=== PATIENT | female | born 1980 | race Caucasian/White ===

== ENCOUNTER 2019-03-03 08:39 | Outpatient (CLI) | payer OTHER ==
[2019-03-03] MEDS ORDERED: LEVO75TA5 PO (09:06)
[2019-03-03] MEDS ORDERED: one a day vitamin PO (09:37)
== END 2019-03-03 23:59 | disposition home or self-care (01) ==
LOC: STAR 08:39
PROVIDERS: ATTEND Surgery Vascular Surgery
DX: Z02.9 Encounter for administrative examinations, unspecified (principal)

== ENCOUNTER 2019-03-10 08:40 | Day surgery (SDC) | payer OTHER ==
[~2019-03-10] VITALS: Ht 154.9 cm; Wt 80.7 kg
[~2019-03-10 08:40] MED LIST: LEVO75TA5 PO; one a day vitamin PO
[2019-03-10] MEDS ORDERED: BUPIVACAINE/PF 0.5% ONE (09:04)
[2019-03-10 09:08] VITALS: BP 121/86
[2019-03-10] MEDS ORDERED: LACTATED RINGERS 1,000 ML IV SCH (09:10)
[2019-03-10 09:30] LABS: HCG UR SG 1.029 (1.003-1.030)
[2019-03-10] MEDS ORDERED: ACETAMINOPHEN 500 MG TABLET PO ONE (09:30)
[2019-03-10] MEDS ORDERED: MIDAZOLAM 1 MG/ML, 2ML ONE (09:56)
[2019-03-10] MEDS ORDERED: FENTANYL PF 100 MCG/2ML ONE ×2 (09:56→11:35)
[2019-03-10] MEDS ORDERED: CEFAZOLIN 1,000 MG ONE ×3 (09:59→10:57)
[2019-03-10] MEDS ORDERED: SODIUM CHLORIDE 0.9% PF 10ML ONE ×2 (09:59→10:58)
[2019-03-10] MEDS ORDERED: PROPOFOL 10 MG/ML, 20ML ONE ×2 (09:59→10:57)
[2019-03-10] MEDS ORDERED: LABETALOL 5MG/ML, 20ML IV PRN (10:00)
[2019-03-10] MEDS ORDERED: ONDANSETRON 2MG/ML, 2ML IV PRN (10:00)
[2019-03-10] MEDS ORDERED: MEPERIDINE/PF 25MG/ML,1ML IVPush PRN (10:00)
[2019-03-10] MEDS ORDERED: PROMETHAZINE 25 MG/ML, 1ML IV PRN (10:00)
[2019-03-10] MEDS ORDERED: FENTANYL PF 100 MCG/2ML IV PRN (10:00)
[2019-03-10] MEDS ORDERED: hydrALAzine 20 MG/ML, 1ML IV PRN (10:00)
[2019-03-10] MEDS ORDERED: HYDROmorphone 2 MG/ML, 1ML IVPush PRN (10:00)
[2019-03-10] MEDS ORDERED: OXYcodone 5 MG/5 ML ORAL.SOL UDC PO PRN (10:00)
[2019-03-10] MEDS ORDERED: EPHEDRINE 50 MG/ML, 1ML IVPush PRN (10:00)
[2019-03-10] MEDS ORDERED: ONDANSETRON 2MG/ML, 2ML ONE (10:57)
[2019-03-10] MEDS ORDERED: SCOPOLAMINE PATCH, 1.5MG PATCH.TD72 TD ONE ×2 (10:57→11:00)
[2019-03-10] MEDS ORDERED: DEXAMETHASONE 4 MG/ML, 1ML ONE ×2 (10:57)
[2019-03-10] MEDS ORDERED: SUCCINYLCHOLINE 20 MG/ML, 10ML ONE (11:01)
[2019-03-10] MEDS ORDERED: KETOROLAC 30 MG/1 ML ONE (11:01)
[2019-03-10] MEDS ORDERED: EPINEPHRINE 1 MG/ML, 1ML INFIL ONE (11:16)
[2019-03-10] MEDS ORDERED: OXYcodone 5 MG/5 ML ORAL.SOL UDC ONE (11:53)
== END 2019-03-10 13:50 | disposition home or self-care (01) ==
LOC: OUT 08:40
PROVIDERS: ATTEND Surgery Vascular Surgery
DX: K40.90 Unilateral inguinal hernia, without obstruction or gangrene, not specified as recurrent (principal); E03.9 Hypothyroidism, unspecified; Z79.890 Hormone replacement therapy; Z79.899 Other long term (current) drug therapy; Z88.2 Allergy status to sulfonamides; Z98.890 Other specified postprocedural states; Z82.49 Family history of ischemic heart disease and other diseases of the circulatory system; Z80.3 Family history of malignant neoplasm of breast
CPT/HCPCS: 49505; 81025; C1781; J0171; J0330; J0690; J1100; J1885; J2250; J2405; J2704; J3010; J7120